=== PATIENT | female | born 1965 | race Caucasian/White ===

== ENCOUNTER → 2016-12-10 | Outpatient (CLI) | payer BC | LOC: MAMMO 08:26 | DX: Z12.31 Encounter for screening mammogram for malignant neoplasm of breast (principal) ==

== ENCOUNTER → 2017-01-14 | Outpatient (CLI) | payer BC | LOC: RAD 16:41 | DX: M54.6 Pain in thoracic spine (principal); R10.9 Unspecified abdominal pain ==

== ENCOUNTER 2017-11-13 20:31 | Emergency (ER) | payer BC ==
[~2017-11-13] VITALS: Ht 152.4 cm; Wt 100.0 kg
[2017-11-13] MEDS ORDERED: HCTZ 25MG25 MG PO (20:53)
[2017-11-13] MEDS ORDERED: NORCO 325 MG-51 TA1 PO (22:15)
[2017-11-13] MEDS ORDERED: ORPHENADRINE C100 MG PO (22:15)
[2017-11-13 22:39] VITALS: BP 140/73
== END 2017-11-13 22:39 | disposition home or self-care (01) ==
LOC: ED 20:31
DX: I10 Essential (primary) hypertension (principal); F17.210 Nicotine dependence, cigarettes, uncomplicated; M62.830 Muscle spasm of back
CPT/HCPCS: J2360

== ENCOUNTER → 2018-04-08 | Outpatient (CLI) | payer BC ==
[~2018-04-08] MED LIST: HCTZ 25MG25 MG PO; NORCO 325 MG-51 TA1 PO; ORPHENADRINE C100 MG PO
== END ==
LOC: RAD 15:18
DX: M17.0 Bilateral primary osteoarthritis of knee (principal)

== ENCOUNTER → 2018-12-15 | Outpatient (CLI) | payer BC | LOC: MAMMO 08:30 | DX: Z00.00 Encounter for general adult medical examination without abnormal findings (principal); Z12.31 Encounter for screening mammogram for malignant neoplasm of breast; Z13.820 Encounter for screening for osteoporosis; I10 Essential (primary) hypertension; R60.9 Edema, unspecified; B35.1 Tinea unguium; Z72.0 Tobacco use ==

== ENCOUNTER → 2019-06-14 | Outpatient (CLI) | payer BC ==
[~2019-06-14] VITALS: Ht 152.4 cm; Wt 100.0 kg
[~2019-06-14] MED LIST changes: +DYAZIDE 37.5-21 EACH PO; +LOSARTAN POTASS1 TA1 PO; +MELOXICAM15 MG PO
[2019-06-14 17:21] VITALS: BP 142/93
== END ==
LOC: AMSURD 17:12
DX: I10 Essential (primary) hypertension (principal); R13.14 Dysphagia, pharyngoesophageal phase

== ENCOUNTER → 2020-06-25 | Outpatient (CLI) | payer BC ==
[2019-06-14 17:21] VITALS: BP 142/93
== END ==
LOC: MAMMO 15:03
DX: Z12.31 Encounter for screening mammogram for malignant neoplasm of breast (principal)

== ENCOUNTER → 2020-12-19 | Outpatient (REF) ==
[2019-06-14 17:21] VITALS: BP 142/93
== END ==
LOC: LAB 15:45
DX: I10 Essential (primary) hypertension (principal)

== ENCOUNTER → 2022-02-18 | Outpatient (REF) | LOC: LAB 14:59 | DX: U07.1 COVID-19 (principal); I10 Essential (primary) hypertension; R60.9 Edema, unspecified ==

== ENCOUNTER → 2022-06-11 | Outpatient (CLI) | payer BC | LOC: MAMMO 08:58 | DX: Z12.31 Encounter for screening mammogram for malignant neoplasm of breast (principal) ==

== ENCOUNTER → 2022-09-04 | Outpatient (CLI) | payer BC ==
[2022-09-04 07:47] LABS: HEMATOCRIT 54.5 % (37.0-47.0); HEMOGLOBIN 18.2 g/dL (12.5-16.0); MEAN PLATELET VOLUME 8.9 fl (7.4-10.4); RED BLOOD COUNT 5.85 M/mm3 (4.10-5.30); RED CELL DISTRIBUTION WIDTH 14.6 % (11.5-14.5); WHITE BLOOD COUNT 9.5 K/mm3 (4.8-10.8)
[2022-09-04 08:09] LABS: ALBUMIN 4.1 g/dL (3.5-5.0); POTASSIUM 4.5 mmol/L (3.5-5.1)
[2022-09-04 08:10] LABS: CALCIUM 10.1 mg/dL (8.3-10.5)
[2022-09-04 08:12] LABS: TOTAL PROTEIN 7.9 g/dL (6.4-8.3)
[2022-09-04 08:13] LABS: TOTAL BILIRUBIN 0.3 mg/dL (0.2-1.2)
== END ==
LOC: LAB 07:32
PROVIDERS: Family Medicine
DX: Z13.220 Encounter for screening for lipoid disorders (principal); Z13.1 Encounter for screening for diabetes mellitus; Z13.0 Encounter for screening for diseases of the blood and blood-forming organs and certain disorders involving the immune mechanism; J06.9 Acute upper respiratory infection, unspecified; N95.1 Menopausal and female climacteric states

== ENCOUNTER → 2022-09-22 | Outpatient (CLI) | payer BC | LOC: LAB 14:25 | DX: E66.9 Obesity, unspecified (principal); R71.8 Other abnormality of red blood cells; I10 Essential (primary) hypertension ==